=== PATIENT | female | born 1965 | race Caucasian/White ===

== ENCOUNTER 2016-12-29 12:56 | Inpatient (IN) | payer OTHER, MEDICAID ==
[~2016-12-29] VITALS: Ht 157.5 cm; Wt 155.0 kg
--- NOTE | ~2016-12-29 | HEMODYNAMI ---
PATIENT:JEANNETTE MARTE MEDICAL RECORD: [id number] : 63 [id number] ADMISSION DATE: 12/30/16 Generatedon:01/01/201710:55 Patient name: JEANNETTE MARTE Patient #: [id number] : 1965 Date of study: 01/01/2017 Page: Of Hemodynamic Procedure Report Patient Data Patient Demographics Procedure consent was obtained First Name: JEANNETTE Gender: Female Last Name: ROSANNA : 1965 Middle Initial: C Age: 51 year(s) Patient #: [id number] Race: Unknown SSN: [id number] Additional ID: [id number] Contact details Address: [address] [place] [address] [address] State: [place] City: [place] Zip code: [address] Admission Admission Data Admission Date: 12/30/2016 Admission Time: 17:08 Room #: D2118 Lab Results Lab Result Date: 01/01/2017 Lab Result Time: 0:00 Biochemistry Name Units Result Min Max BUN mg/dl 29 --(----)-* 7 18 Creatinine mg/dl 1.1 --(--*-)-- 0.6 1.3 CBC Name Units Result Min Max Hemoglobin g/dl 11.2 *-(----)-- 13.5 17.5 Procedure Procedure Types Cath Procedure Diagnostic Procedure LHC LH w/Coronaries Miscellaneous Procedures Moderate Sedation up to 15 minutes Procedure Description Procedure Date Procedure Date: 01/01/2017 Procedure Start Time: 10:30 Procedure End Time: 10:51 Procedure Staff Name Function Chema Lorenzana MD Performing Physician Meryl Stephens RT Scrub Andre Bruno RN Nurse Nancy Downing RT Monitor Procedure Data Cath Procedure Fluoroscopy Diagnostic fluoroscopy Total fluoroscopy dose: 757 dose: 757 mGy mGy Contrast Material Contrast Material Type Amount (ml) Isovue 300 60 Entry Location Entry Primary Successful Side Size Upsize Upsize Entry Closure Succes sful Closure Location (Fr) 1 (Fr) 2 (Fr) Remarks Device Remarks Femoral Right 5 Fr Exoseal artery Estimated blood loss: 10 ml Diagnostic catheters Device Type Used For End Catheter Placement Cordis 5Fr JL 4.0 Procedure Catheter (MP) Cordis 5Fr 3DRC Catheter Procedure (MP) Cordis 5Fr Pigtail LV Angiography Catheter (MP) Procedure Complications No complications Procedure Medications Medication Administration Route Dosage Oxygen NC 2 l/min Heparin Flush Bag added to field 2 bags (1000units/500ml NS) 0.9% NaCl I.V. 100 ml/hr Radial Cocktail added to field 1 syringe (Verapomil 2mg/Nitro 400mcg/Heparin 1500units) Fentanyl I.V. 50 mcg Versed I.V. 1 mg Fentanyl I.V. 50 mcg Versed I.V. 1 mg Fentanyl I.V. 50 mcg Fentanyl I.V. 50 mcg Hemodynamics Rest HGB: 11.2 (g/dl) Heart Rate: 0 (bpm) Pressure Samples Time Site Value (mmHg) Purpose Heart Use Rate(bpm) 10:48 LV 134/0,28 Snapshot 83 10:49 AO 129/77(101) Pullback 82 10:49 LV 135/7,31 Pullback 82 Gradients Valve Time Site 1 Site 2 Mean SEP/DFP Peak To Heart Use (mmHg) (sec/min) Peak Rate (mmHg) (bpm) Aortic 10:49 LV AO 11 23 6 82 135/7,31 129/77(101) Calculations Valve P-P Mean Valve Index Valve Source Name Gradient Area Flow (cm2) Aortic 6 11 6 11 Snapshots Pre Cath Intra NCS Post Cath Vital Signs Time Heart Resp SPO2 etCO2 QE4ibar NIBP (mmHg) Rhythm Pain Sedation Rate (ipm) (%) (mmHg) (mmHg) Status Level (bpm) 10:15:08 88 22 98 0 0 118/71(90) NSR 0 (11) 10(A) , No pain 10:19:53 80 16 97 0 0 116/68(96) NSR 0 (11) 10(A) , No pain 10:24:35 75 18 90 0 0 114/68(80) NSR 0 (11) 9(A) , No pain 10:29:20 78 18 97 0 0 119/61(87) NSR 0 (11) 9(A) , No pain 10:34:03 76 18 98 0 0 114/66(85) NSR 0 (11) 9(A) , No pain 10:38:43 85 21 100 0 0 123/72(103) NSR 0 (11) 9(A) , No pain 10:43:28 83 19 98 0 0 127/65(101) NSR 0 (11) 9(A) , No pain 10:48:11 72 19 99 0 0 124/71(101) NSR 0 (11) 9(A) , No pain 10:52:59 81 18 100 0 0 113/66(100) NSR 0 (11) 9(A) , No pain Medications Time Medication Route Dose Verified Delivered Reason Notes Eff ectiveness by by 10:19:58 Oxygen NC 2 l/min Andre Powell Per Damion Bruno RN physician RN 10:20:07 Heparin Flush added 2 bags Andre Powell used for Bag to Damion Bruno silver spray worker (1000units/500ml RN NS) 10:20:23 0.9% NaCl I.V. 100 Andre Andre Per ml/hr Damion Bruno RN physician RN 10:20:31 Radial Cocktail added 1 Andre Andre used for (Verapomil to syringe Damion Bruno silver spray worker 2mg/Nitro field RN 400mcg/Heparin 1500units) 10:22:38 Fentanyl I.V. 50 mcg Andre Powell for Damion Bruno RN sedation RN 10:22:45 Versed I.V. 1 mg Andre Coronadoy for Damion Bruno RN sedation RN 10:25:04 Fentanyl I.V. 50 mcg Andre Powell for Damion Bruno RN sedation RN 10:25:08 Versed I.V. 1 mg Andre Andre for Damion Bruno RN sedation RN 10:39:25 Fentanyl I.V. 50 mcg Andre Andre for Damion Bruno RN sedation RN 10:40:48 Fentanyl I.V. 50 mcg Andre Andre for Damion Bruno RN sedation forestry hunter Log Time Note 9:40:29 Andre Bruno RN sent for patient. Start room use. 9:52:46 Lab Result : BUN 29 mg/dl 9:52:46 Lab Result : Creatinine 1.1 mg/dl 9:52:46 Lab Result : Hemoglobin 11.2 g/dl 9:52:56 Diagnostic Cath Status : Elective 9:53:31 Time tracking: Regular hours 9:53:36 Plan of Care:Hemodynamics will remain stable., Cardiac rhythm will remain stable., Comfort level will be maintained., Respiratory function will remain adequate., Patient/ family verbilizes understanding of procedure., Procedure tolerated without complication., Recovers from procedure without complications.. 9:53:44 Patient received from Med II to CCL 1 Alert and oriented. Tansferred to table in Supine position. 9:53:57 H&P Date Dictated: 12/29/2016 Within 30 days and on chart.. 10:13:26 Warm blankets applied, and keely hugger turned on for patient comfort. 10:13:26 Correct patient and procedure confirmed by team. 10:13:28 Signed procedure consent form obtained from patient. 10:13:29 ECG and BP/O2 sat monitors applied to patient. 10:13:29 Vital chart was started 10:13:30 Baseline sample Acquired. 10:13:36 Baseline sample Acquired. 10:13:43 Rhythm: sinus tachycardia 10:13:45 Full Disclosure recording started 10:13:46 Pre-procedure instructions explained to patient. 10:13:47 Pre-op teaching completed and patient verbalized understanding. 10:13:48 Family in waiting room. 10:13:51 Patient NPO since Midnight. 10:13:53 Is the patient allergic to Iodine/contrast media? No. 10:13:56 Was the patient premedicated? No 10:13:57 Is patient on blood thinner?Yes 10:14:00 ACC The patient was administered the following blood thiners within the last 24 hours: Eliquis 10:14:12 Patient diabetic? Yes. 10:14:15 If diabetic: On Metformin? No 10:14:18 Previous problem with sedation/anesthesia? No ? 10:14:20 Snore? Yes 10:14:21 Sleep apnea? Yes 10:14:22 Deviated septum? No 10:14:23 Opens mouth fully? Yes 10:14:24 Sticks out tongue? Yes 10:14:27 Airway obstruction? Yes copd 10:14:31 Dentures? No ? 10:14:42 Pre procedure: right dorsailis pedis pulse 1+ Palpable, but thready & weak; easily obliterated 10:14:44 Modified Jose Luis's test Radial < 7 seconds 10:14:47 Patient pain scale 0/10 ?. 10:14:56 IV patent on arrival in right antecubital with 0.9% NaCl at [facility]. 10:14:59 Lab results completed and on chart. 10:15:04 Right Radial & Right Groin area was prepped with chlora-prep and draped in sterile fashion 10:15:07 Alarms reviewed by R. N. 10:15:07 Sharps counted by scrub and verified by R.N. 10:15:09 Physician paged 10:15:10 Physician arrived 10:16:43 --------ALL STOP TIME OUT------ 10:16:44 Final Timeout: patient, procedure, and site verified with staff and physician. All members of the team are in agreement. 10:16:47 Right Radial & Right Groin site verified by team. 10:16:51 Physical assessment completed. ASA score P 2 - A patient with mild systemic disease as per Chema Lorenzana MD. 10:16:56 Sedation plan: IV Moderate Sedation Versed, Fentanyl 10:17:21 Use device set Radial Dx 10:17:23 Acist Syringe opened to sterile field. 10:17:23 Medline Cath Pack opened to sterile field. 10:17:24 Bag Decanter opened to sterile field. 10:17:24 St Sigifredo 260cm J .035 wire opened to sterile field. 10:17:25 Acist Hand Control opened to sterile field. 10:17:25 Acist Manifold opened to sterile field. 10:19:58 Oxygen 2 l/min NC was given by Andre Bruno RN; Per physician; 10:20:07 Heparin Flush Bag (1000units/500ml NS) 2 bags added to field was given by Andre Bruno RN; used for procedure; 10:20:23 0.9% NaCl 100 ml/hr I.V. was given by Andre Bruno RN; Per physician; 10:20:31 Radial Cocktail (Verapomil 2mg/Nitro 400mcg/Heparin 1500units) 1 syringe added to field was given by Andre Bruno RN; used for procedure; 10:22:38 Fentanyl 50 mcg I.V. was given by Andre Bruno RN; for sedation; 10:22:45 Versed 1 mg I.V. was given by Andre Bruno RN; for sedation; 10:25:04 Fentanyl 50 mcg I.V. was given by Andre Bruno RN; for sedation; 10:25:08 Versed 1 mg I.V. was given by Andre Bruno RN; for sedation; 10:29:58 Procedure started. 10:30:40 Local anesthetic to right radial artery with Lidocaine 2% by Chema Lorenzana MD.INITIAL ACCESS ONLY 10:32:01 Zero performed for pressure channel P1 10:37:23 wrist unsuccessful 10:37:33 Local anesthetic to right femoral artery with Lidocaine 2% by Chema Lorenzana MD.ADDITIONAL ACCESS 10:37:59 Terumo 5Fr Hudson Sheath opened to sterile field. 10:39:18 Use device set Multipack Set 10:39:22 Diagnostic Infinity 5Fr Multipack catheter opened to sterile field. 10:39:23 Tegaderm 4 x 4 opened to sterile field. 10:39:25 Fentanyl 50 mcg I.V. was given by Andre Bruno RN; for sedation; 10:39:45 A 5 Fr sheath was inserted into the Right Femoral artery 10:40:48 Fentanyl 50 mcg I.V. was given by Andre Bruno RN; for sedation; 10:42:24 A Cordis 5Fr JL 4.0 Catheter (MP) was advanced over the wire and used for Procedure. 10:43:03 LCA angiography performed. 10:46:57 Catheter removed. 10:47:20 A Cordis 5Fr 3DRC Catheter (MP) was advanced over the wire and used for Procedure. 10:47:31 RCA angiography performed. 10:47:36 Catheter removed. 10:48:17 A Cordis 5Fr Pigtail Catheter (MP) was advanced over the wire and used for LV Angiography. 10:48:57 EF : 60 % 10:49:09 Catheter removed. 10:49:21 Cordis 5Fr Exoseal opened to sterile field. 10:49:37 Sheath removed intact; hemostasis achieved with Exoseal to the Right Femoral artery. 10:49:43 Procedure ended.(Physican Out) 10:50:05 Fluoroscopy dose: 757 mGy 10:50:05 Flurop Dose total: 757 10:50:09 Contrast amount:Isovue 300 60ml. 10:50:11 Sharps counted by scrub and verified by R.N. 10:50:16 Insertion/operative site no bleeding no hematoma. 10:50:22 Post-op/insertion site Right Femoral artery dressed using a 4 x 4 and Tegaderm. 10:50:26 Post right femoral artery:stable 10:50:28 Post Procedure Pulses reassessed and unchanged 10:50:33 Post-procedure physical assessment completed. ASA score P 3 - A patient with severe systemic disease as per Chema Lorenzana MD. 10:50:39 Post procedure rhythm: unchanged. 10:50:54 Estimated blood loss: 10 ml 10:50:57 Post procedure instruction explained to patient.Patient verbalizes understanding. 10:51:08 Procedure and supply charges have been captured, reviewed, submitted and are correct. 10:51:31 Procedure Complication : No complications 10:51:34 Vital chart was stopped 10:51:38 See physician's report for complete and final results. 10:51:41 Report given to [facility]. 10:51:44 Patient transfered to [facility] with Bed. 10:51:46 Procedure ended. 10:51:46 Full Disclosure recording stopped 10:51:50 End room use (Document Last) Device Usage Item Name Manufacture Quantity Catalog Hospital Part Current Minimal Lo t# / Number Charge Number Stock Stock Serial# Code Acist Acist 1 [id number] 700737 306746 120332 20 Syringe Medical [employer] Inc Medline Cardinal 1 [id number] 79221 074765 5 Cath Pack Health Bag Microtek 1 2002S 554794 44897 579692 [address] St Sigifredo 1 035617 137667 690315 205727 30 260cm J .035 wire Acist Hand Acist 1 36225 375485 771711 644845 5 Control Medical Systems Inc Acist Acist 1 39466 956482 318965 643790 5 Manifold Medical Systems Inc Terumo 5Fr Terumo 1 [id number] 887855 622554 192664 40 Hudson Sheath Diagnostic Cardinal 1 [id number] 948009 76929 349616 30 PharmMDity adicate timeads 5Fr Multipack catheter Tegaderm 4 3M 1 1626W 972640 294760 611752 5 x 4 Cordis 5Fr Cardinal 1 713150 5 JL 4.0 Health Catheter (MP) Cordis 5Fr Cardinal 1 270711 5 3DRC Health Catheter () Cordis 5Fr Cardinal 1 491511 5 Pigtail Health Catheter () Cordis 5Fr Cardinal 1 EX500 758919 839613 462836 10 [facility] Health Signature Audit Hope Stage Time Signature Unsigned Intra-Procedure 01/01/2017 Nancy Downing 10:55:07 AM RT(R) Signatures Monitor : Nancy Downing Signature : RT Date : Time : [place] [id number] [facility] [place] [address]
[~2016-12-29 12:56] MED LIST: ALBUTEROL2.5 MG/3 M INH; ASPIRIN81 MG PO; BENADRYL25 MG PO; CALCIUM/MAG/ZINC PO; ELIQUIS5 MG PO; HYDROCODON-ACE1 EAC7 PO; HYDROCODONE-APA1 TAB PO; KLONOPIN1 MG PO; MAXZIDE 75/501 TAB PO; MELATONIN 10 M1 EACH PO; MELATONIN 3 MG1 TAB PO; MUCINEX600 MG PO; MULTIPLE VITAMI1 TA1 PO; NEURONTIN600 MG PO; PLAVIX75 MG PO; PROBIOTIC1 EAC1 PO; PROBOTIC PO; ROBAXIN-750750 MG PO; SYMBICORT 16010.2 GM INH; TOPAMAX100 MG PO; ULTRAM50 MG PO; VITAMIN B-1000 MCG/M IM; VITAMIN D31000 UNIT PO; WELLBUTRIN XL150 M1 PO; ZESTRIL20 MG PO; ZOCOR20 MG PO; ZOLOFT100 MG PO
[2016-12-29 13:44] LABS: BASOPHILS 0.2 % (0.0-2.0); EOSINOPHILS 2.4 % (0-7); HEMATOCRIT 39.8 % (36.0-48.0); HEMOGLOBIN 12.9 g/dL (12-16); IMMATURE GRANULOCYTES 0.1 % (0-5); MCH 30.1 pg (26.0-34.0); MCHC 32.4 g/dL (31.0-37.0); MEAN PLATELET VOLUME 11.4 fL (7.4-10.4); MONOCYTES 5.3 % (2-11); PLATELET COUNT 257 10x3/uL (130-400); RBC 4.28 10x6/uL (4.00-5.40); RDW 14.6 % (11.5-14.5); WBC 9.6 10x3/uL (4.8-10.8)
[2016-12-29 13:48] LABS: ALBUMIN 3.3 g/dL (3.4-5.0); ALKALINE PHOSPHATASE 68 U/L (46-116); ALT (SGPT) 30 U/L (10-68); BILIRUBIN - TOTAL 0.34 mg/dL (0.2-1.3); CALC OSMOLALITY 290 mosm/kg (275-300); CALCIUM 7.7 mg/dL (8.5-10.1); CARBON DIOXIDE 18.4 mmol/L (21.0-32.0); CHLORIDE - SERUM 102 mmol/L (98-107); CREATININE - SERUM 2.7 mg/dL (0.6-1.3); POTASSIUM - SERUM 4.2 mmol/L (3.5-5.1); PROTEIN - SERUM 6.6 g/dL (6.4-8.2); SODIUM 135 mmol/L (136-145); UREA NITROGEN 60 mg/dL (7-18); eGFR NON AFRICAN AMERICAN 20 mL/min (90-120)
[2016-12-29 13:49] LABS: GLUCOSE 162 mg/dL (74-106)
[2016-12-29 13:59] LABS: CHOL - HDL RATIO 3.7 ratio (2.3-4.1); CHOLESTEROL, TOTAL 119 mg/dL (0-200); CKMB 0.8 U/L (0.0-3.6); CREATINE KINASE 86 UL (21-215); HDL CHOLESTEROL 32 mg/dL (32-96); LDL CHOLESTEROL 57 mg/dL (0-100); LDL-HDL RATIO 1.8 ratio (1.5-3.5); TRIGLYCERIDE 151 mg/dL (30-200)
[2016-12-29 14:00] LABS: TROPONIN-I < 0.017 ng/mL (0.000-0.060)
[2016-12-29 16:00] VITALS: BP 102/44
--- NOTE | 2016-12-29 16:59 | NUR ---
RECEIVED PT TO ROOM 2117 VIA STRETCHER FROM ER PT DENIES ANY NEEDS OR DISCOMFORT AT THIS TIME AAOX4 RESP UNLABORED O2 ON AT 2LPM
[2016-12-29 19:16] LABS: CKMB 1.2 U/L (0.0-3.6); CREATINE KINASE 87 UL (21-215)
[2016-12-29 19:17] LABS: TROPONIN-I < 0.017 ng/mL (0.000-0.060)
[2016-12-29] MEDS ORDERED: GLUCOPHAGE1000 MG PO (19:24)
[2016-12-29] MEDS ORDERED: LYRICA150 MG PO (19:24)
[2016-12-29] MEDS ORDERED: FARXIGA10 MG PO (19:25)
[2016-12-29 20:00] VITALS: BP 81/46
--- NOTE | 2016-12-29 22:37 | NUR ---
INITIAL ROUNDS MADE. PT SITTING UP IN BED WATCHING TV WITH FAMILY IN ROOM. PT DENIES NEEDS OR C/O AT THIS TIME. WILL CONT TO MONITOR.
[2016-12-30] VITALS: BP 66/33
[2016-12-30 00:07] LABS: CKMB 0.8 U/L (0.0-3.6); CREATINE KINASE 87 UL (21-215)
[2016-12-30 00:09] LABS: TROPONIN-I < 0.017 ng/mL (0.000-0.060)
--- NOTE | 2016-12-30 00:38 | NUR ---
COMMODITY MANAGER AT BEDSIDE FOR VS, NEEDS ADDRESSED. CALL LIGHT IN REACH. WILL CONT TO MONITOR.
[2016-12-30 04:00] VITALS: BP 92/57
[2016-12-30] MEDS ORDERED: TRINTELLIX20 MG PO (04:57)
--- NOTE | 2016-12-30 06:30 | NUR ---
RESTING WELL, WATCHING TV. DENIES NEEDS, CONT TO MONITOR.
[2016-12-30 06:44] LABS: BASOPHILS 0.2 % (0.0-2.0); EOSINOPHILS 2.8 % (0-7); HEMATOCRIT 36.8 % (36.0-48.0); HEMOGLOBIN 11.7 g/dL (12-16); IMMATURE GRANULOCYTES 0.2 % (0-5); LYMPHOCYTES 28.4 % (15-50); MCH 29.5 pg (26.0-34.0); MCHC 31.8 g/dL (31.0-37.0); MCV 92.9 fL (80.0-100.0); MEAN PLATELET VOLUME 11.1 fL (7.4-10.4); NEUTROPHILS 63.4 % (40-80); PLATELET COUNT 264 10x3/uL (130-400); RBC 3.96 10x6/uL (4.00-5.40); RDW 14.7 % (11.5-14.5); WBC 9.2 10x3/uL (4.8-10.8)
[2016-12-30 07:15] LABS: CALC OSMOLALITY 289 mosm/kg (275-300); CARBON DIOXIDE 19.4 mmol/L (21.0-32.0); CHLORIDE - SERUM 104 mmol/L (98-107); CKMB 0.2 U/L (0.0-3.6); CREATINE KINASE 87 UL (21-215); GLUCOSE 181 mg/dL (74-106); POTASSIUM - SERUM 4.1 mmol/L (3.5-5.1); SODIUM 135 mmol/L (136-145); TROPONIN-I < 0.017 ng/mL (0.000-0.060); UREA NITROGEN 54 mg/dL (7-18)
[2016-12-30 07:23] LABS: CALCIUM 6.9 mg/dL (8.5-10.1); eGFR NON AFRICAN AMERICAN 28 mL/min (90-120)
--- NOTE | 2016-12-30 07:30 | NUR ---
RECEIVED PT IN BED AAOX4 RESP UNLABORED O2 ON 4LPM NC SKIN W/D COLOR WNL RAC SALINE LOCK WITH DRSG INTACT WITHOUT REDNESS OR EDEMA NAD NOTED
[2016-12-30 08:11] VITALS: BP 96/58
[2016-12-30 11:58] VITALS: BP 100/59
[2016-12-30 13:27] VITALS: Ht 157.5 cm; Wt 155.0 kg
[2016-12-30 15:55] VITALS: BP 109/47
--- NOTE | 2016-12-30 19:15 | NUR ---
INITIAL ROUNDS MADE. PT SITTING UP IN BED WATCHING TV. NO NEEDS OR C/O AT THIS TIME. WILL CONT TO MONITOR.
[2016-12-30 20:00] VITALS: BP 129/72
--- NOTE | 2016-12-30 23:29 | NUR ---
DIELECTRIC TESTER AT BEDSIDE FOR VS. NEEDS ADDRESSED AT THIS TIME. CALL LIGHT IN REACH. BELKIS CONT TO MONITOR.
[2016-12-31] VITALS: BP 91/50
[2016-12-31 04:00] VITALS: BP 136/68
[2016-12-31 05:54] LABS: BASOPHILS 0.7 % (0.0-2.0); EOSINOPHILS 4.3 % (0-7); HEMATOCRIT 35.7 % (36.0-48.0); HEMOGLOBIN 11.2 g/dL (12-16); LYMPHOCYTES 40.3 % (15-50); MCH 29.6 pg (26.0-34.0); MCHC 31.4 g/dL (31.0-37.0); MCV 94.2 fL (80.0-100.0); MONOCYTES 6.6 % (2-11); NEUTROPHILS 48.1 % (40-80); PLATELET COUNT 249 10x3/uL (130-400); RBC 3.79 10x6/uL (4.00-5.40); RDW 14.5 % (11.5-14.5)
[2016-12-31 06:14] LABS: WBC 6.1 10x3/uL (4.8-10.8)
[2016-12-31 06:20] LABS: ANION GAP 10.5 mmol/L (8-16); CALCIUM 7.5 mg/dL (8.5-10.1); POTASSIUM - SERUM 3.7 mmol/L (3.5-5.1)
[2016-12-31 06:22] LABS: CARBON DIOXIDE 26.2 mmol/L (21.0-32.0); CREATININE - SERUM 1.2 mg/dL (0.6-1.3)
--- NOTE | 2016-12-31 06:40 | NUR ---
WATCHING TV. DENIES NEEDS. AM GLUCOSE ON LAB 129.
[2016-12-31 08:05] VITALS: BP 112/56
--- NOTE | 2016-12-31 09:19 | NUR ---
TELEMETRY SR. RESP UL ON 2L NC. IV PATENT. CALL LIGHT IN REACH. WILL CONT. PLAN OF CARE.
[2016-12-31 15:22] VITALS: BP 111/68
[2016-12-31 15:25] VITALS: BP 121/65; BP 145/84
[2016-12-31 16:04] LABS: BASOPHILS 0.5 % (0.0-2.0); EOSINOPHILS 2.2 % (0-7); HEMATOCRIT 35.4 % (36.0-48.0); HEMOGLOBIN 11.2 g/dL (12-16); IMMATURE GRANULOCYTES 0.1 % (0-5); LYMPHOCYTES 30.7 % (15-50); MCH 29.9 pg (26.0-34.0); MCHC 31.6 g/dL (31.0-37.0); MCV 94.4 fL (80.0-100.0); MEAN PLATELET VOLUME 10.7 fL (7.4-10.4); MONOCYTES 6.1 % (2-11); NEUTROPHILS 60.4 % (40-80); PLATELET COUNT 234 10x3/uL (130-400); RBC 3.75 10x6/uL (4.00-5.40); RDW 14.3 % (11.5-14.5); WBC 7.6 10x3/uL (4.8-10.8)
[2016-12-31 16:21] LABS: ANION GAP 13.1 mmol/L (8-16); CALCIUM 7.6 mg/dL (8.5-10.1); CARBON DIOXIDE 24.8 mmol/L (21.0-32.0); CREATININE - SERUM 1.1 mg/dL (0.6-1.3)
[2016-12-31 16:23] LABS: POTASSIUM - SERUM 4.9 mmol/L (3.5-5.1)
--- NOTE | 2016-12-31 16:31 | NUR ---
CONSENTS SIGNED FOR [facility].
--- NOTE | 2016-12-31 19:42 | NUR ---
RESUMED CARE OF PT, RESPIRATIONS EVEN AND UNLABORED ON 2LPM VIA NC. TEARFUL, A LOT OF FAMILY DYNAMICS AT THIS TIME. 97 SR ON TELEMETRY. RIGHT AC INFUSING NS @ 30. NO NEEDS VOICED AT THIS TIME. CALL LIGHT IN REACH. WILL CONTINUE TO MONITOR. SEE NURSE ASSESMENT.
[2016-12-31 20:00] VITALS: BP 115/61
[2017-01-01] VITALS: BP 122/68
[2017-01-01 04:00] VITALS: BP 107/70
--- NOTE | 2017-01-01 06:26 | NUR ---
NO CHANGES FROM PREVIOUS ASSESSMENT, CALL LIGHT IN REACH. WILL CONTINUE TO WITH PLAN OF CARE.
[2017-01-01 06:27] LABS: BASOPHILS 0.5 % (0.0-2.0); EOSINOPHILS 4.8 % (0-7); HEMOGLOBIN 10.8 g/dL (12-16); IMMATURE GRANULOCYTES 0.2 % (0-5); MCH 29.8 pg (26.0-34.0); MCHC 31.8 g/dL (31.0-37.0); MCV 93.7 fL (80.0-100.0); MONOCYTES 5.2 % (2-11); NEUTROPHILS 43.3 % (40-80); PLATELET COUNT 244 10x3/uL (130-400); RBC 3.63 10x6/uL (4.00-5.40); RDW 14.4 % (11.5-14.5)
[2017-01-01 06:28] LABS: WBC 5.6 10x3/uL (4.8-10.8)
[2017-01-01 06:45] LABS: ANION GAP 9.3 mmol/L (8-16); CALCIUM 7.7 mg/dL (8.5-10.1); CARBON DIOXIDE 28.8 mmol/L (21.0-32.0); CREATININE - SERUM 0.9 mg/dL (0.6-1.3)
[2017-01-01 06:46] LABS: POTASSIUM - SERUM 4.1 mmol/L (3.5-5.1)
[2017-01-01 08:00] VITALS: BP 98/56
--- NOTE | 2017-01-01 09:52 | NUR ---
TELEMETRY SR. PRE-OPS GIVEN FOR LHC. WILL CONT. PLAN OF CARE.
--- NOTE | 2017-01-01 10:06 | NUR ---
LEAVING FOR DEGREE CLERK BY BED.
--- NOTE | 2017-01-01 11:25 | NUR ---
BACK FROM [place]. VS WNL. RIGHT GROIN STABLE WITHOUT BLEEDING OR HEMATOMA NOTED. WILL MONITOR.
--- NOTE | 2017-01-01 11:30 | NUR ---
BACK FROM replanting machine crew. VS WNL. RIGHT GROIN STABLE WITHOUT BLEEDING OR HEMATOMA NOTED.
--- NOTE | 2017-01-01 13:03 | NUR ---
BEDREST UP. GROIN STABLE.
--- NOTE | 2017-01-01 14:36 | NUR ---
Patient Name: JEANNETTE MARTE Admission Status: ER Accout number: [id number] Admission Date: 12-30-2016 : 1965 Admission Diagnosis: Attending: LACEY Current LOS: 2 Anticipated DC Date: Planned Disposition: Home [facility] Discharge Planning Comments: CM ATTEMPTED TO MEET WITH PT FOR INITIAL ASSESSMENT OF DISCHARGE NEEDS. PT WAS POST PROCEDURE AT APPROXIMATELY 1240 HOURS. CM TO ATTEMPT ASSESSMENT OF PT AT A LATER TIME. Bench Manager: Morgan Garcia
--- NOTE | 2017-01-01 15:29 | NUR ---
Nutrition education for DMT2: CHUYN attempted to instruct pt on a DMT2 consistent CHO diet. Pt stated she has had instruction before and did not need any more. Pt also refused the DMT2 handouts. CHUYN following.
--- NOTE | 2017-01-01 16:21 | NUR ---
IV AND TELEMETRY DCD. DC PLANS GIVEN. UNDERSTANDING VOICED. ESCORTED TO CAR BY W/C.
--- NOTE | 2017-01-01 16:38 | NUR ---
Patient Name: JEANNETTE MARTE Admission Status: ER Accout number: [id number] Admission Date: 12-30-2016 : 1965 Admission Diagnosis: Attending: LACEY Current LOS: 2 Anticipated DC Date: 01-01-2017 Planned Disposition: Home Primary Insurance: [employer] INS EXCHANGE LATE ENTRY: Discharge Planning Comments: * Is the patient Alert and Oriented? Yes 0 * How many steps to enter\exit or inside your home? 2 0 * PCP DR. MOSLEY 0 * Pharmacy [facility] [address] 0 * Preadmission Environment Home with Family 0 * ADLs Independent 0 * Equipment Nebulizer Oxygen 0 * Other Equipment HOME AND PORTABLE OXYGEN; PT IS USING AT NIGHT ONLY AT THIS TIME [facility] - MEDICAL EQUIPMENT PROVIDER 0 * List name and contact numbers for known caregivers / representatives who currently or will assist patient after discharge: RL POP, MOTHER, 0 * Community resources currently utilized None 0 * Please name any agencies selected above. NONE 0 * Additional services required to return to the preadmission environment? No 0 * Can the patient safely return to the preadmission environment? Yes 0 * Has this patient been hospitalized within the prior 30 days at any hospital? No 0 CM MET WITH PT IN ROOM TO DISCUSS DISCHARGE PLANNING AND NEEDS. PT REPORTS LIVING AT HOME INDEPENDENTLY WITH A ROOMMATE. PT HAS HOME AND PORTALBLE OXYGEN THAT SHE WEARS AT NIGHT ONLY AND A NEBULIZER PROVIDED BY [facility]. PT HAS NO OUTSIDE SERVICES ASSISTING IN THE HOME. CM DISCUSSED AVAILABILITY OF HOME HEALTH, REHAB SERVICES AND MEDICAL EQUIPMENT. PT DENIES DISCHARGE NEEDS, REPORTS HER ROOMMATE WILL PICK HER UP FOR DISCHARGE HOME. Councilor: Morgan Garcia
--- NOTE | 2017-01-13 08:17 | OP ---
PATIENT NAME: JEANNETTE MARTE MEDICAL RECORD: [id number] :63 LOCATION:D.M2 D.2118 ADMISSION DATE:12/29/16 SURGEON: MONICA URIAS M.D. DATE OF OPERATION: 01/01/2017 Catheterization Report REFERRING PHYSICIAN: Teofilo Sykes MD. PROCEDURES PERFORMED: 1. Selective coronary angiography. 2. Left heart catheterization with ventriculogram. INDICATION: A 51-year-old woman who presents with symptoms of accelerating angina. EQUIPMENT USED: A 5-Bahamian JL4, Carmelo right, pigtail catheter. TECHNIQUE: A 5-Bahamian sheath was inserted in retrograde fashion in the right common femoral artery. Next, selective coronary angiography was performed in standard view using 5-Bahamian JL4 and Carmelo right. Left heart catheterization performed using pigtail catheter. CORONARY ANATOMY: 1. Left main: Left main trunk is moderate in caliber. It gives rise to the LAD and circumflex. It is angiographically normal. 2. LAD: This is a moderate caliber vessel extending to the apex. It is smooth-walled and angiographically normal. 3. Circumflex: This vessel is small in caliber, but angiographically normal. 4. Right coronary: This vessel is quite large and dominant. It supplies the PDA and posterolateral branches in the distal segment. This vessel is smooth-walled and angiographically normal. 5. Left ventricle: Left ventricle appears normal in size and function. No wall motion abnormalities are seen. Estimated ejection fraction is 55%. IMPRESSION: 1. Normal coronary arteries. 2. Normal left ventricular function. RECOMMENDATIONS: I suspect her discomfort is noncardiac in origin. We will continue with medical management. TRANSINT:[id number] Voice Confirmation ID: [id number] DOCUMENT ID: [id number] MONICA URIAS M.D. at 0817 CC: [id number] DICTATION DATE: 01/01/17 1059 INDUSTRIAL RETROFIT DESIGNER: 01/01/17 1312 DIS IN 01/01/17 [place] [id number] [place] [id number]
--- NOTE | 2017-01-13 08:17 | EC ---
PATIENT:JEANNETTE MARTE DATE OF SERVICE: 12/30/16 SEX: F MEDICAL RECORD: [id number] DATE OF : [birth year] LOCATION:D.M2 D.211 AGE OF PATIENT: 51 ADMISSION DATE: 12/29/16 REFERRING PHYSICIAN: INTERPRETING PHYSICIAN: MONICA LORENZANA M.D. ECHOCARDIOGRAM REPORT ECHO CHARGES 4 ECHO COMPLETE CLINICAL DIAGNOSIS: CHEST PAIN HX HTN/CVA'S ECHOCARDIOGRAPHIC MEASUREMENTS (adult normal given) AC root (d.<3.7cm) 3.5 LV Septum d (<1.2 cm> 1.7 Valve Excursion 1.7 LV Septum (systole) 1.9 Left Atria (s.<4.0cm> 3. LVPW d(<1.2cm) 1.6 RV (d.<2.3cm) 4.1 LVPW (sytole) 1.7 LV diastole(<5.6CM) 4.5 MV E-F(>70mm/sec) LV systole 3.4 LVOT Diameter 2.2 MV exc.(>10mm) Est.ejection fraction (50-75%) Pericardial Effusion N DOPPLER: LVIT A 53.0 E 69.0 LA RVSP 25 LVOT 105 AOP1/2T Asc. Ao 169 RVOT 133 RA PA 1852 AV Gradient Peak 11.42 AV Mean 5.36 AV Area 2.3 MV Gradient Peak 2.8 MV Mean 0.95 MV Area COMMENTS: Gravel Machine Operator: Brittanie HERNANDEZ Clothing Consultant:2 Dr. Lorenzana TAPE# PACS DATE OF SERVICE: 12/30/2016 REFERRING PHYSICIAN: Dr. Sykes. INDICATION: Chest pain. DESCRIPTION: Left ventricle demonstrates left ventricular hypertrophy. No wall motion abnormalities are noted. Estimated ejection is 60%. Mitral valve is structurally normal. There is no regurgitation or prolapse seen. Left atrium is normal size. The aortic valve is trileaflet. There is no stenosis or ECHOCARDIOGRAM REPORT [id number] JEANNETTE MARTE regurgitation seen. Right ventricle is mildly dilated. Tricuspid valve is normal. There is mild regurgitation noted. Right atrium is normal size. There is no pericardial effusion seen. IMPRESSION: 1. Left ventricular hypertrophy with preserved ejection of 60%. 2. Mild tricuspid regurgitation. TRANSINT:[id number] Voice Confirmation ID: [id number] DOCUMENT ID: [id number] 01/07/2017 Edited to correct date of service, MONICA Owen M.D. at 0817 CC: [id number] DICTATION DATE: 12/31/16 0805 DAIRY MANUFACTURING TECHNOLOGIST: 12/31/16 1141 DIS IN 01/01/17 [facility] [address] [place] [id number]
== END 2017-01-01 16:22 | disposition home or self-care (01) | DRG 287 ==
LOC: OBSVTIME → D.ER 12:56 → OBSVTIME 15:37 → D.M2 15:37
PROVIDERS: Emergency Medicine; Internal Medicine Cardiovascular Disease; ADMIT Family Medicine Adult Medicine
PROC: 4A023N7 Measurement of Cardiac Sampling and Pressure, Left Heart, Percutaneous Approach (ICD-10-PCS; 2017-01-01)
PROC: B2151ZZ Fluoroscopy of Left Heart using Low Osmolar Contrast (ICD-10-PCS; 2017-01-01)
PROC: B2111ZZ Fluoroscopy of Multiple Coronary Arteries using Low Osmolar Contrast (ICD-10-PCS; principal; 2017-01-01 08:30)
DX: R07.89 Other chest pain (principal); N17.9 Acute kidney failure, unspecified; D68.51 Activated protein C resistance; Z86.73 Personal history of transient ischemic attack (TIA), and cerebral infarction without residual deficits; I10 Essential (primary) hypertension; G62.9 Polyneuropathy, unspecified; K90.0 Celiac disease; E86.0 Dehydration; G89.4 Chronic pain syndrome

== ENCOUNTER → 2017-02-17 09:50 | Outpatient (CLI) | payer MEDICAID ==
[2016-12-30 13:27] VITALS: BMI 60.4
[~2017-02-17 09:50] MED LIST changes: +FARXIGA10 MG PO; +GLUCOPHAGE1000 MG PO; +LYRICA150 MG PO; +TRINTELLIX20 MG PO
== END | disposition home or self-care (01) ==
LOC: D.RAD 09:50
DX: J98.11 Atelectasis (principal)

== ENCOUNTER → 2017-08-26 11:02 | Outpatient (CLI) | payer MEDICARE ==
[2016-12-30 13:27] VITALS: BMI 60.4
== END | disposition home or self-care (01) ==
LOC: D.RT 11:00
DX: J45.909 Unspecified asthma, uncomplicated (principal)

== ENCOUNTER 2017-09-13 00:52 | Emergency (ER) | payer MEDICARE ==
[2016-12-30 13:27] VITALS: BMI 60.4
== END 2017-09-13 03:55 | disposition home or self-care (01) ==
LOC: D.ER 00:52
DX: R04.0 Epistaxis (principal); I10 Essential (primary) hypertension

== ENCOUNTER 2018-05-10 08:00 | Outpatient (CLI) | payer OTHER, MEDICARE ==
[2016-12-30 13:27] VITALS: BMI 60.4
== END 2018-05-10 09:00 | disposition home or self-care (01) ==
LOC: D.MAMMO 08:00
DX: Z12.31 Encounter for screening mammogram for malignant neoplasm of breast (principal)

== ENCOUNTER → 2018-07-12 07:58 | Outpatient (CLI) | payer OTHER ==
[2016-12-30 13:27] VITALS: BMI 60.4
== END | disposition home or self-care (01) ==
LOC: D.RAD 07-09 08:00
DX: K90.0 Celiac disease (principal); C18.9 Malignant neoplasm of colon, unspecified; Z13.9 Encounter for screening, unspecified

== ENCOUNTER → 2018-07-16 07:50 | Outpatient (CLI) | payer OTHER ==
[2016-12-30 13:27] VITALS: BMI 60.4
== END | disposition home or self-care (01) ==
LOC: D.RAD 07-14 07:37
DX: K90.0 Celiac disease (principal); Z12.11 Encounter for screening for malignant neoplasm of colon

== ENCOUNTER 2019-10-05 17:46 | Inpatient (IN) | payer OTHER ==
[~2019-10-05] VITALS: Ht 157.5 cm; Wt 144.7 kg
[2019-10-05] MEDS ORDERED: NEURONTIN600 MG PO (18:35)
[2019-10-05] MEDS ORDERED: MUCINEX600 MG PO (18:36)
[2019-10-05 19:13] LABS: BASOPHILS 0.4 % (0-2); EOSINOPHILS 3.5 % (0-7); HEMATOCRIT 45.3 % (36.0-48.0); IMMATURE GRANULOCYTES 0.3 % (0-5); LYMPHOCYTES 39.9 % (15-50); MCH 31.6 pg (26.0-34.0); MCHC 33.1 g/dL (31.0-37.0); MCV 95.4 fL (80.0-100.0); MEAN PLATELET VOLUME 10.3 fL (7.4-10.4); MONOCYTES 5.1 % (2-11); NEUTROPHILS 50.8 % (40-80); RBC 4.75 10x6/uL (4.00-5.40); RDW 13.3 % (11.5-14.5); WBC 9.2 10x3/uL (4.8-10.8)
[2019-10-05 19:17] LABS: PLATELET COUNT 332 10x3/uL (130-400)
[2019-10-05 19:32] LABS: APPEARANCE CLEAR (CLEAR); BILIRUBIN NEGATIVE (NEGATIVE); COLOR YELLOW (YELLOW); GLUCOSE NEGATIVE (NEGATIVE); KETONE NEGATIVE (NEGATIVE); NITRITE NEGATIVE (NEGATIVE); PROTEIN NEGATIVE (NEGATIVE); SPECIFIC GRAVITY 1.025 (1.005-1.020); UROBILINOGEN NORMAL (NORMAL)
[2019-10-05 19:33] LABS: BACTERIA FEW /hpf (NEGATIVE); EPITHELIAL CELLS OCC /hpf (0-5); RED CELLS - URINE OCC /hpf (0-5); WHITE CELLS - URINE 0-5 /hpf (NEGATIVE)
[2019-10-05 19:34] LABS: ANION GAP 18.9 mmol/L (8-16); CALCIUM 9.3 mg/dL (8.5-10.1); CARBON DIOXIDE 22.1 mmol/L (21.0-32.0); CREATININE - SERUM 1.2 mg/dL (0.6-1.3)
[2019-10-05 19:41] LABS: ALBUMIN 3.5 g/dL (3.4-5.0); BILIRUBIN - TOTAL 0.48 mg/dL (0.2-1.3)
[2019-10-05 21:01] VITALS: BP 135/75
[2019-10-05 23:12] VITALS: BP 149/87; Ht 157.5 cm; Wt 144.7 kg
--- NOTE | 2019-10-06 00:14 | NUR ---
PAGED BENITEZ SULLIVAN, HUMANE AGENT DUE TO PT WANTING TO RESTART HOME MEDS.
--- NOTE | 2019-10-06 00:17 | NUR ---
SPOKE WITH BENITEZ SULLIVAN APN, HE STATED HE WILL LOOK AT MED REC AND RESTART SOME OF HER HOME MEDS.
[2019-10-06 05:53] LABS: BASOPHILS 0.2 % (0-2); EOSINOPHILS 0.2 % (0-7); HEMATOCRIT 41.3 % (36.0-48.0); HEMOGLOBIN 13.7 g/dL (12-16); IMMATURE GRANULOCYTES 1.1 % (0-5); LYMPHOCYTES 20.9 % (15-50); MCH 31.3 pg (26.0-34.0); MCHC 33.2 g/dL (31.0-37.0); MCV 94.3 fL (80.0-100.0); MEAN PLATELET VOLUME 10.4 fL (7.4-10.4); MONOCYTES 0.8 % (2-11); NEUTROPHILS 76.8 % (40-80); PLATELET COUNT 297 10x3/uL (130-400); RBC 4.38 10x6/uL (4.00-5.40); RDW 13.3 % (11.5-14.5)
[2019-10-06 06:05] LABS: WBC 6.2 10x3/uL (4.8-10.8)
[2019-10-06 06:13] LABS: ANION GAP 15.2 mmol/L (8-16); CARBON DIOXIDE 24.3 mmol/L (21.0-32.0); CREATININE - SERUM 1.1 mg/dL (0.6-1.3); MAGNESIUM - SERUM 1.5 mg/dL (1.8-2.4); PHOSPHOROUS 3.1 mg/dL (2.5-4.9); POTASSIUM - SERUM 4.5 mmol/L (3.5-5.1)
--- NOTE | 2019-10-06 07:20 | NUR ---
RECIEVE REPORT. ALERT AND ORIENTED X4. SITTING UP IN BED RECIEVING UPDRAFT TREATMENT. DENIES ANY NEEDS. CONTINUE PLAN OF CARE AND SAFETY PRECAUTIONS. INITIATE ELECTROLYTE PROTOCOL ORDERED. SINUS TACH 108 ON TELEMETRY.
[2019-10-06 08:19] VITALS: BP 125/68
[2019-10-06 12:30] VITALS: BP 150/84
[2019-10-06 15:31] VITALS: BP 137/78
[2019-10-06 18:40] LABS: APTT 25.9 SECONDS (22.8-39.4)
[2019-10-06 18:41] LABS: INR 1.12 (0.85-1.17); PROTIME 13.9 SECONDS (11.6-15.0)
[2019-10-06 20:00] VITALS: BP 116/68
--- NOTE | 2019-10-06 22:00 | NUR ---
A&O X 4. AMBULATES INDEPENDENTLY. REPORTS OCCASIONAL COUGH. DENIES PAIN AT THIS TIME. REPORTS SUICIDAL IDEATION WHEN NOT TAKING ANTIDEPRESSENT. BENITEZ SULLIVAN CALLED AND ORDER ENTERED FOR PT TO TAKE MEDIACATION. PT DENIES FURTHYER NEEDS AT THIS TIME.
[2019-10-06 23:00] VITALS: BP 108/60
--- NOTE | 2019-10-07 02:36 | NUR ---
I have reviewed this patient and I concur with the Shift Assessment completed by the Licensed Practical Nurse today this shift.
[2019-10-07 04:00] VITALS: BP 124/80
[2019-10-07 06:36] LABS: ANION GAP 11.4 mmol/L (8-16); CARBON DIOXIDE 28.6 mmol/L (21.0-32.0); CREATININE - SERUM 1.2 mg/dL (0.6-1.3)
[2019-10-07 06:41] LABS: PHOSPHOROUS 4.2 mg/dL (2.5-4.9)
[2019-10-07 06:51] LABS: BASOPHILS 0.1 % (0-2); EOSINOPHILS 0.1 % (0-7); HEMATOCRIT 40.1 % (36.0-48.0); IMMATURE GRANULOCYTES 0.3 % (0-5); LYMPHOCYTES 7.4 % (15-50); MCH 30.7 pg (26.0-34.0); MCHC 32.4 g/dL (31.0-37.0); MCV 94.8 fL (80.0-100.0); MEAN PLATELET VOLUME 10.5 fL (7.4-10.4); MONOCYTES 1.8 % (2-11); NEUTROPHILS 90.3 % (40-80); PLATELET COUNT 297 10x3/uL (130-400); RBC 4.23 10x6/uL (4.00-5.40); RDW 13.7 % (11.5-14.5)
[2019-10-07 07:01] LABS: WBC 11.7 10x3/uL (4.8-10.8)
[2019-10-07 09:30] VITALS: BP 107/45
--- NOTE | 2019-10-07 13:21 | NUR ---
PATIENT BLOOD SUGAR WAS HIGH, 457 . TREATED WITH 20 UNITS INSULIN ORDERED AND RECHECKED IN 1 HOUR. NOW IT IS 462. CALLED VANESSA. WAITING FOR HER CALL BACK.
[2019-10-07 15:00] VITALS: BP 120/72
[2019-10-07 17:32] VITALS: BP 132/75
--- NOTE | 2019-10-07 19:26 | NUR ---
IN BED WITH RT TREATMENT RUNNING, FACE IS REDDENED, BUT DENIES ANY ACUTE DISTRESS. ABLE TO VOICE ALL NEEDS. WILL NOTE ANY CHANGE.
[2019-10-07 20:00] VITALS: BP 123/66
[2019-10-07 21:19] VITALS: BP 123/66
[2019-10-08] VITALS (7 sets, daily range): BP systolic 124–145; BP diastolic 47–72
--- NOTE | 2019-10-08 04:10 | NUR ---
I have reviewed this patient and I concur with the Shift Assessment completed by the Licensed Practical Nurse today this shift.
[2019-10-08 04:19] LABS: BASOPHILS 0 % (0-2); EOSINOPHILS 0 % (0-7); HEMATOCRIT 39.7 % (36.0-48.0); HEMOGLOBIN 12.8 g/dL (12-16); IMMATURE GRANULOCYTES 0.9 % (0-5); LYMPHOCYTES 7.5 % (15-50); MCH 30.8 pg (26.0-34.0); MCHC 32.2 g/dL (31.0-37.0); MCV 95.4 fL (80.0-100.0); MEAN PLATELET VOLUME 10.3 fL (7.4-10.4); MONOCYTES 1.8 % (2-11); NEUTROPHILS 89.8 % (40-80); PLATELET COUNT 320 10x3/uL (130-400); RBC 4.16 10x6/uL (4.00-5.40); RDW 13.8 % (11.5-14.5); WBC 13.9 10x3/uL (4.8-10.8)
[2019-10-08 04:32] LABS: ANION GAP 14.3 mmol/L (8-16); CARBON DIOXIDE 26.4 mmol/L (21.0-32.0); CREATININE - SERUM 1.3 mg/dL (0.6-1.3); MAGNESIUM - SERUM 1.9 mg/dL (1.8-2.4); POTASSIUM - SERUM 4.7 mmol/L (3.5-5.1)
--- NOTE | 2019-10-08 07:48 | NUR ---
PATIENT IS ALERT AND AWAKE. RECIEVED REPORT FROM OFF GOING NURSE. PATIENT IS TAKING HER BREATHING TREATMENT. NEW IV IN LEFT AC SALINE LOCKED. SHE DENIES ANY NEEDS AT THIS TIME.
--- NOTE | 2019-10-08 19:41 | NUR ---
REPORT FROM ONCOMING SHIFT AND BEDSIDE ROUNDS COMPLETED. PT RESTING WITH NO DISTRESS.
--- NOTE | 2019-10-09 02:02 | NUR ---
PT RESTING IN BED. IV ABT HAS INFUSED. PT WATCHING TV. CPOC.
[2019-10-09 04:00] VITALS: BP 126/66
[2019-10-09 05:53] LABS: BASOPHILS 0.1 % (0-2); EOSINOPHILS 0 % (0-7); HEMATOCRIT 39.8 % (36.0-48.0); IMMATURE GRANULOCYTES 1.3 % (0-5); MCH 30.9 pg (26.0-34.0); MCHC 32.7 g/dL (31.0-37.0); MCV 94.5 fL (80.0-100.0); MEAN PLATELET VOLUME 10.3 fL (7.4-10.4); MONOCYTES 2.8 % (2-11); NEUTROPHILS 84.8 % (40-80); PLATELET COUNT 324 10x3/uL (130-400); RBC 4.21 10x6/uL (4.00-5.40); RDW 13.6 % (11.5-14.5)
[2019-10-09 06:06] LABS: WBC 9.8 10x3/uL (4.8-10.8)
[2019-10-09 06:32] LABS: ANION GAP 13.6 mmol/L (8-16); CALCIUM 9.3 mg/dL (8.5-10.1); CARBON DIOXIDE 26.8 mmol/L (21.0-32.0); CREATININE - SERUM 1.2 mg/dL (0.6-1.3); MAGNESIUM - SERUM 1.8 mg/dL (1.8-2.4); PHOSPHOROUS 4.4 mg/dL (2.5-4.9); POTASSIUM - SERUM 4.4 mmol/L (3.5-5.1)
--- NOTE | 2019-10-09 07:50 | NUR ---
RECIEVED REPORT. PATIENT IS SITTING UP IN BED. SHE JUST RECIEVED HER RESPIRATORY TREATMENT. HER CHEEKS ARE RED, HOWEVER SHE REPORTS THAT SHE IS FEELING RELIEF FROM THE BREATHING TREATMENT. LESS EFFORT TO BREATH REDUCES THE REDNESS.
[2019-10-09 09:00] VITALS: BP 141/71
--- NOTE | 2019-10-09 10:09 | NUR ---
PATIENT REPORTS THAT SHE FEELS IF HER HEART IS POUNDING, CHECKED TELEMETRY AND SHE HAS A 88 SINUS RYTHUM. MEDICATIONS GIVEN ORDERED. HER FACE AND CHEEKS ARE RED. SHE HAS A COUGH, AND SAYS THAT ITS HARD TO WAIT FOR HER NEXT BREATHING TREATMENT. IV INFUSING ORDERED.
[2019-10-09 13:04] VITALS: BP 145/82
[2019-10-09 17:42] VITALS: BP 125/64
--- NOTE | 2019-10-09 19:30 | NUR ---
REPORT COMPLETED. INITIAL ROUNDS COMPLETED. PT RESTING IN BED. NO DISTRESS. CALL LIGHT IN REACH.
[2019-10-09 20:46] VITALS: BP 148/67
--- NOTE | 2019-10-09 22:19 | NUR ---
BEDTIME MEDS GIVEN FSBS 185, SLIDING SCALE INSULIN GIVEN. PT WATCHING TV. NO NEEDS.
[2019-10-10] VITALS: BP 140/76
--- NOTE | 2019-10-10 00:57 | NUR ---
IV ABT UP AND INFUSING TO LEFT A/C. MONITOR AND CPOC.
--- NOTE | 2019-10-10 04:15 | NUR ---
IV TO LEFT A/C REDRESSED AND AFFIRMED THAT SITE WAS STILL PATENT. IF PT NEEDS EXTENSIVE MORE DOSES OF MEDICATION, THEN MIDLINE WOULD BE APPROPRIATE.
[2019-10-10 04:30] VITALS: BP 160/76
[2019-10-10 05:31] LABS: BASOPHILS 0 % (0-2); EOSINOPHILS 0 % (0-7); HEMATOCRIT 40.3 % (36.0-48.0); HEMOGLOBIN 13.3 g/dL (12-16); IMMATURE GRANULOCYTES 0.9 % (0-5); LYMPHOCYTES 11.1 % (15-50); MCH 31.1 pg (26.0-34.0); MCV 94.4 fL (80.0-100.0); MONOCYTES 4.1 % (2-11); NEUTROPHILS 83.9 % (40-80); PLATELET COUNT 317 10x3/uL (130-400); RBC 4.27 10x6/uL (4.00-5.40); RDW 13.7 % (11.5-14.5); WBC 9.3 10x3/uL (4.8-10.8)
[2019-10-10 06:08] LABS: CALCIUM 9.2 mg/dL (8.5-10.1); CARBON DIOXIDE 26.2 mmol/L (21.0-32.0); CREATININE - SERUM 1.1 mg/dL (0.6-1.3); MAGNESIUM - SERUM 1.7 mg/dL (1.8-2.4); PHOSPHOROUS 4.4 mg/dL (2.5-4.9); POTASSIUM - SERUM 4.2 mmol/L (3.5-5.1)
[2019-10-10 08:02] VITALS: BP 118/64
--- NOTE | 2019-10-10 08:14 | NUR ---
AM MEDS GIVEN AT THIS TIME. LT AC IV NOT PATENT. D/C WITH CATHETER TIP INTACT. PT STATING THAT SHE MIGHT BE GOING HOME TODAY AND WANTS TO WAIT TO HAVE A NEW IV PUT BACK IN. PT A/O X4, RESP EVEN AND NONLABORED ON 3L NC. PT DENIES ANY OTHER NEEDS AT THIS TIME. CALL LIGHT IN REACH, NAD NOTED, WILL CONTINUE TO MONITOR.
[2019-10-10] MEDS ORDERED: DOXYCYCLINE HY100 M2 PO (10:57)
[2019-10-10] MEDS ORDERED: OMNICEF300 MG PO (10:57)
[2019-10-10] MEDS ORDERED: PROTONIX40 MG PO (10:58)
[2019-10-10] MEDS ORDERED: SINGULAIR10 MG PO (10:58)
[2019-10-10] MEDS ORDERED: PREDNISONE20 MG PO (10:59)
--- NOTE | 2019-10-10 11:24 | NUR ---
BLOOD SUGAR OF 349, 20UNITS OF INSULIN GIVEN PER S/S. PT DENIES ANY NEEDS AT THIS TIME. CALL LIGHT IN REACH,NAD NOTED, WILL CONTINUE TO MONITOR.
--- NOTE | 2019-10-10 11:49 | NUR ---
YESSI FOR DISCHARGE PER DR ERWIN.
--- NOTE | 2019-10-10 12:33 | MORECARE ---
CASE MANAGEMENT DISCHARGE SUMMARY PATIENT: JEANNETTE FAM UNIT: [id number] ADM DATE: 10/05/19 AGE: 53 : 63 SEX: F ROOM/BED: D.1833 AUTHOR: CHARLETTE,DOC PHYSICIAN: REFERRING PHYSICIAN: ISELA MOSLEY MD DATE OF SERVICE: 10/10/19 Discharge Plan Patient Name: JEANNETTE FAM Facility: [facility]:[place] : 1965 Planned Disposition: Home Anticipated Discharge Date: 10/10/19 Discharge Date: Expected LOS: 5 Initial Reviewer: [id number] Initial Review Date: 10/05/2019 Generated: 10/10/19 1:33 pm Comments DCP- Discharge Planning Updated by [email or web address]: Morgan Garcia on 10/10/19 11:[address] Patient Name: JEANNETTE PÉREZ Admission Status: ER Accout number: [id number] Admission Date: 10-05-2019 : 1965 Admission Diagnosis: Attending: BIRDIE MOSLEY Current LOS: 5 Anticipated DC Date: 10-10-2019 Planned Disposition: Home Primary Insurance: [employer] Discharge Planning Comments: CM MET WITH PT IN ROOM TO DISCUSS DISCHARGE PLANNING AND NEEDS. PT REPORTS LIVING AT HOME INDEPENDENTLY WITH HER 17 YEAR OLD TWIN CHILDREN. PT HAS BIPAP, NEBULIZER AND HOME / PORTABLE OXYGEN SHE WEARS WHEN BELOW 92%. MEDICAL EQUIPMENT PROVIDER IS [facility]. PT HAS NO OUTSIDE SERVICES ASSISTING IN THE HOME. CM DISCUSSED AVAILABILITY OF HOME HEALTH, REHAB SERVICES AND MEDICAL EQUIPMENT. PT DENIES DISCHARGE NEEDS, REPORTS HER SON WILL PICK HER UP FOR DISCHARGE HOME. IMPORTANT MESSAGE FROM MEDICARE PROVIDED AND EXPLAINED. SPRAY MACHINE OPERATOR NURSE NOTIFIED. Dog Raiser: Morgan Garcia DCPIA - Discharge Planning Initial Assessment Updated by [id number]: Morgan Garcia on 10/10/19 12:30 pm * Is the patient Alert and Oriented? Yes * How many steps to enter\exit or inside your home? * PCP DR. MOSLEY * Pharmacy [facility] ON [address] * Preadmission Environment Home with Family * ADLs Independent * Equipment BIPAP Nebulizer Oxygen * Other Equipment HOME AND PORTABLE OXYGEN OXYGEN NEEDED [facility] * List name and contact numbers for known caregivers / representatives who currently or will assist patient after discharge: RL POP, MOTHER, * Verbal permission to speak to the caregivers and representatives has been obtained from the patient. N/A * Community resources currently utilized None * Please name any agencies selected above. NONE * Additional services required to return to the preadmission environment? No * Can the patient safely return to the preadmission environment? Yes * Has this patient been hospitalized within the prior 30 days at any hospital? No Coverage Notice Reviewer: [email or web address] Mala Garcia Notice Issued Date-Time: 10/10/2019 12:20 Notice Type: IM Discharge Notice Notice Delivered To: Patient Relationship to Patient: Employee Welfare Manager Name: Delivery Method: HAND - Hand Delivered Karen Days: Prior Verbal Notification: Recipient Understood Notice: Yes Recipient Signature: Yes Med Rec Note Co-signed by Attending: Coverage Notice Comment: Patient Name: JEANNETTE FAM Page [phone] at 1233 All edits/amendments must be made on the electronic document DICTATION DATE: 10/10/19 1233 SOUVENIR AND NOVELTY MAKER: AURE 10/10/19 1233 RPT#: [id number] DC DATE: STATUS: ADM IN [facility] [address] [place] [address] END OF REPORT
--- NOTE | 2019-10-10 12:37 | NUR ---
PROVIDED VERBAL AND WRITTEN DISCHARGE TEACHING TO PT, WHO VERBALIZED UNDERSTANDING REGARDING TEACHING. REMOVED HEART MONITOR AND TAKEN TO TIE CARRIER. PT WILL NOTIFY NURSE WHEN RIDE GETS HERE.
--- NOTE | 2019-10-10 13:42 | NUR ---
PER DR ERWIN, WRITTEN SCRIPT FOR DUONEB COPIED AND GIVEN TO PATIENT. I ALSO GAVE THE PATIENT HER HOME MEDICATIONS OF TRINTELLIX. THIS WAS TOLD TO HER PRIMARY NURSE JULIUS JENNINGS.
[2019-10-10] MEDS ORDERED: IPRAT-ALBUT 0.5-3 ML UPD (13:44)
--- NOTE | 2019-10-10 14:14 | NUR ---
PT STILL WAITING ON RIDE, DENIES ANY NEEDS AT THIS TIME, CALL LIGHT IN REACH, NAD NOTED, WILL CONTINUE TO MONITOR.
== END 2019-10-10 14:33 | disposition home or self-care (01) | DRG 194 ==
LOC: D.ER 17:46 → D.M2 21:24
PROVIDERS: Family Medicine; ADMIT Emergency Medicine; ATTEND Emergency Medicine
DX: J18.9 Pneumonia, unspecified organism (principal); D68.2 Hereditary deficiency of other clotting factors; J45.901 Unspecified asthma with (acute) exacerbation; N17.9 Acute kidney failure, unspecified; I10 Essential (primary) hypertension; E11.65 Type 2 diabetes mellitus with hyperglycemia; K21.9 Gastro-esophageal reflux disease without esophagitis; L40.9 Psoriasis, unspecified; F41.8 Other specified anxiety disorders; E83.42 Hypomagnesemia; E66.01 Morbid (severe) obesity due to excess calories; Z68.38 Body mass index [BMI] 38.0-38.9, adult; Z86.73 Personal history of transient ischemic attack (TIA), and cerebral infarction without residual deficits

== ENCOUNTER → 2019-12-20 08:06 | Outpatient (CLI) | payer OTHER ==
[2019-10-05 23:12] VITALS: BMI 58.7
[~2019-12-20 08:06] MED LIST changes: +DOXYCYCLINE HY100 M2 PO; +IPRAT-ALBUT 0.5-3 ML UPD; +OMNICEF300 MG PO; +PREDNISONE20 MG PO; +PROTONIX40 MG PO; +SINGULAIR10 MG PO
== END | disposition home or self-care (01) ==
LOC: D.RAD 12-05 10:00 → D.RT 12-05 10:00 → D.RAD 12-05 10:45 → D.RT 08:00
PROVIDERS: ATTEND Internal Medicine Pulmonary Disease
DX: J18.9 Pneumonia, unspecified organism (principal); J45.909 Unspecified asthma, uncomplicated; R09.02 Hypoxemia

== ENCOUNTER 2021-02-04 11:00 | Outpatient (CLI) | payer MEDICARE ==
[2019-10-05 23:12] VITALS: BMI 58.7
== END 2021-02-04 12:00 | disposition home or self-care (01) ==
LOC: D.MAMMO 11:00
PROVIDERS: ATTEND Clinical Nurse Specialist Family Health
DX: N60.19 Diffuse cystic mastopathy of unspecified breast (principal)